=== PATIENT | female | born 1960 | race Hispanic/Latino ===

== ENCOUNTER 2020-02-27 10:09 | Outpatient (RCR) | payer BC | END 2020-02-28 | LOC: PT 10:09 | PROVIDERS: ATTEND Family Medicine | DX: I69.951 Hemiplegia and hemiparesis following unspecified cerebrovascular disease affecting right dominant side (principal) | CPT/HCPCS: 92523 ==

== ENCOUNTER 2020-03-28 12:53 | Outpatient (RCR) | payer BC ==
--- NOTE | 2020-03-16 10:17 | NUR ---
ST NOTE: Pt cx apt, her mother passed, she will return to therapy next week
== END 2020-03-29 ==
LOC: PT 12:53
PROVIDERS: ATTEND Family Medicine
DX: I69.951 Hemiplegia and hemiparesis following unspecified cerebrovascular disease affecting right dominant side (principal)
CPT/HCPCS: 97139

== ENCOUNTER 2020-04-27 15:00 | Outpatient (RCR) | payer BC ==
--- NOTE | 2020-03-30 11:19 | NUR ---
ST NOTE: treatment deferred to Thursday due to unexpected evaluation in acute care and FIELD ASSESSOR inability to get to OP in timely manner.
--- NOTE | 2020-04-20 11:45 | NUR ---
ST Note: Pt's family called and cancelled her appointment.
== END 2020-04-29 ==
LOC: PT 15:00
PROVIDERS: ATTEND Family Medicine
DX: I69.951 Hemiplegia and hemiparesis following unspecified cerebrovascular disease affecting right dominant side (principal)

== ENCOUNTER 2020-05-28 10:08 | Outpatient (RCR) | payer BC | END 2020-05-29 | LOC: PT 10:08 | PROVIDERS: ATTEND Family Medicine | DX: G81.91 Hemiplegia, unspecified affecting right dominant side (principal) ==

== ENCOUNTER 2020-05-30 13:05 | Outpatient (RCR) | payer BC | END 2020-06-29 | LOC: PT 13:05 | PROVIDERS: ATTEND Family Medicine | DX: I69.951 Hemiplegia and hemiparesis following unspecified cerebrovascular disease affecting right dominant side (principal) ==

== ENCOUNTER 2020-07-20 13:07 | Outpatient (RCR) | payer BC | END 2020-07-30 | LOC: PT 13:07 | PROVIDERS: ATTEND Family Medicine | DX: I69.351 Hemiplegia and hemiparesis following cerebral infarction affecting right dominant side (principal); M25.552 Pain in left hip; M62.81 Muscle weakness (generalized); R26.9 Unspecified abnormalities of gait and mobility ==

== ENCOUNTER 2020-08-28 13:00 | Outpatient (RCR) | payer BC | END 2020-08-29 | LOC: OT 13:00 | PROVIDERS: ATTEND Family Medicine | DX: I69.351 Hemiplegia and hemiparesis following cerebral infarction affecting right dominant side (principal); M25.552 Pain in left hip; M62.81 Muscle weakness (generalized); R26.9 Unspecified abnormalities of gait and mobility | CPT/HCPCS: 97139 ==

== ENCOUNTER 2020-09-27 11:00 | Outpatient (RCR) | payer BC | END 2020-09-29 | LOC: OT 11:00 | PROVIDERS: ATTEND Family Medicine | DX: I69.351 Hemiplegia and hemiparesis following cerebral infarction affecting right dominant side (principal); M62.81 Muscle weakness (generalized); R26.9 Unspecified abnormalities of gait and mobility; M25.552 Pain in left hip ==

== ENCOUNTER 2020-10-04 11:00 | Outpatient (RCR) | payer BC | END 2020-10-29 | LOC: OT 11:00 | PROVIDERS: ATTEND Family Medicine | DX: I69.951 Hemiplegia and hemiparesis following unspecified cerebrovascular disease affecting right dominant side (principal); M25.619 Stiffness of unspecified shoulder, not elsewhere classified; M25.552 Pain in left hip; M62.81 Muscle weakness (generalized); R26.9 Unspecified abnormalities of gait and mobility ==

== ENCOUNTER → 2020-11-13 | Outpatient (CLI) | payer BC | LOC: MRI 14:50 | PROVIDERS: ATTEND Family Medicine | DX: M54.40 Lumbago with sciatica, unspecified side (principal) | CPT/HCPCS: 72148 ==